=== PATIENT | female | born 1970 | race Caucasian/White ===

== ENCOUNTER 2017-02-20 12:46 | Day surgery (SDC) | payer OTHER ==
[~2017-02-20] VITALS: Ht 165.1 cm; Wt 64.4 kg
[~2017-02-20 12:46] MED LIST: MESA500C PO; Sodium Chloride LOK Flush 10 mL Syringe IV PRN; fentaNYL-PF 50 mCg/mL 2 mL Inj IVPUSH PRN
[2017-02-20 13:31] VITALS: BP 112/75; PULSE 79; RESP 16; O2SAT 97
[2017-02-20] MEDS: 0.9% Sodium Chloride 1,000 ML IV PRN ×4 (13:37→16:08)
[2017-02-20 16:15] VITALS: BP 119/74; PULSE 72; RESP 14; O2SAT 98
[2017-02-20 16:25] VITALS: BP 109/69; PULSE 82; RESP 14; O2SAT 98
[2017-02-20 16:35] VITALS: BP 113/69; PULSE 84; RESP 14; O2SAT 99
--- NOTE | 2017-02-20 23:02 | ENDO ---
[address] [address] ENDOSCOPY PROCEDURE PATIENT: ALEX HICKS : 1970 MR#: [id number] ADMIT: 02/20/2017 JOB ID: [id number] DATE OF PROCEDURE: 02/20/2017 PRIMARY PROVIDER: FISH Skinner. PROCEDURE: Colonoscopy with biopsies. INDICATIONS: A 46-year-old female with a history of Crohn's colitis. She reports for updated endoscopic exam. She is currently having a flare. She uses Pentasa daily. EQUIPMENT: [employer]-H190DL. SEDATION: 1. Versed 5 mg. 2. Fentanyl 125 mcg. COMPLICATIONS: None identified. PROCEDURE INFORMATION: After the risks and benefits were explained, written and verbal informed consent was obtained. The patient was brought into the endoscopy suite and placed into the left lateral decubitus position. Sedation was achieved using the above-stated medications with the addition of oxygen via nasal cannula. A digital rectal examination was accomplished. No significant pathology appreciated. The scope was introduced into the rectum and advanced to the cecum as identified by the appendiceal orifice and ileocecal valve. The terminal ileum was briefly accessed. The scope then slowly withdrawn to carefully examine the mucosa for any defects or lesions. Multiple direct views were made through the dentate line for exclusion of pathology. The colon was decompressed. The scope was removed from the patient who tolerated the procedure well. FINDINGS: The patient had mild to moderate proctocolitis from the dentate line to about 32 cm from the anal verge. This was characterized by mucosa friability, loss of typical vascular pattern, diffuse mild erythema, some scattered erosive features and numerous pseudopolyps. Beyond 32 cm there were a few scattered pseudopolyps and then the mucosa was largely normal all the way to cecum. The terminal ileal mucosa appeared visually normal. I took segmental biopsies from the ascending, transverse, descending, sigmoid, and finally the rectum. No mass lesions or high risk areas were apparent. ENDOSCOPIC DIAGNOSIS: Proctocolitis to 32 cm. RECOMMENDATIONS: 1. Continue Pentasa. 2. The patient is encouraged to initiate a course of Rowasa enemas each night. 3. I have additionally recommended she switch over to VSL#3 probiotic formula. 4. Follow up on clinical results in the next 4-6 weeks in my office.
--- NOTE | 2017-02-26 16:36 | PATH ---
SURGICAL PATHOLOGY Attending Physician:Kori Johnson CASE STATUS: Signed Out * Amended * PATIENT NAME: ALEX HICKS PID: [id number] : 1970 DATE COLLECTED:02/20/2017 00:00 SPECIMEN: 1: Colon, Biopsy 2: Colon, Biopsy 3: Colon, Biopsy 4: Colon, Biopsy 5: Rectum, Biopsy CLINICAL HISTORY: 1). ASCENDING COLON BIOPSY 2). TRANSVERSE COLON BIOPSY 3). DESCENDING COLON BIOPSY 4). SIGMOID COLON BIOPSY 5). RECTAL BIOPSY FINAL DIAGNOSIS: 1. Ascending Colon, Biopsy: Focal active colitis. Negative for dysplasia and neoplasia. Melanosis coli present. 2. Transverse Colon, Biopsy: Superficial portion of colorectal mucosa with melanosis coli and otherwise no significant histomorphologic abnormality. Negative for dysplasia and neoplasia. 3. Descending Colon, Biopsy: Superficial portion of colorectal mucosa with melanosis coli and otherwise no significant histomorphologic abnormality. Negative for dysplasia and neoplasia. 4. Sigmoid Colon, Biopsy: Chronic active colitis. Negative for dysplasia and neoplasia. 5. Rectal Biopsy: Chronic active colitis. Negative for dysplasia and neoplasia. ICD10 K52.9 This case was reviewed and interpreted by Dr. Zandra Shea. The final diagnosis is unchanged. This amendment is issued in order for the report to cross the interface and be available in the hospital electronic medical record. NOTE: Part 1: Histologic sections demonstrate superficial portions of colorectal mucosa with a well-preserved crypt architecture and very rare neutrophils present within the lamina propria. There is no evidence of cryptitis, granulomas, regions of dysplasia, or neoplasia. Parts 4 and 5: Histologic sections demonstrate superficial portions of colorectal mucosa with a marked increase in lymphocytes, plasma cells, and neutrophils within the lamina propria. Crypt architectural distortion and crypt abscesses are present. There is no evidence of dysplasia or neoplasia. GROSS DESCRIPTION: The specimen is received in five formalin filled containers labeled with the patient's name. 1). The specimen is sublabeled "ascending colon" and consists of a 0.3 x 0.2 x 0.2 CM portion of tissue which is entirely submitted in cassette 1A. 2). The specimen is sublabeled "transverse colon" and consists of an extremely tiny less than 0.1 CM portion of tissue which is entirely submitted in cassette 2A. 3). The specimen is sublabeled "descending colon" and consists of a 0.1 x 0.1 x 0.1 CM portion of tissue which is entirely submitted in cassette 3A. 4). The specimen is sublabeled "sigmoid colon" and consists of 3 portions of tissue which aggregate to 0.3 x 0.3 x 0.2 CM. The specimen is entirely submitted in cassette 4A. 5). The specimen is sublabeled "rectal" and consists of 2 portions of tissue which aggregate to 0.3 x 0.3 x 0.2 CM. The specimen is entirely submitted in cassette 5A. 02/21/2017 [facility] ICD-9 CODES: CPT CODES: 1: 81807 2: 02972 3: 47733 4: 61156 5: 22061 AMENDMENT(S): Amended: 02/26/2017 by Ava Salvador Reason:Miscellaneous The final diagnosis is unchanged. This amendment is issued in order for the report to cross the interface and be available in the hospital electronic medical record. Previous Signout Date: 02/22/2017 Electronically Signed Out Sayda Sun MD [facility] [address], [place] [address] Technical component performed at [facility], [address] [place] [address] Ave[address], [address]
== END 2017-02-20 23:59 | disposition home or self-care (01) ==
LOC: END 12:46
PROVIDERS: ATTEND Internal Medicine Gastroenterology
DX: K50.10 Crohn's disease of large intestine without complications (principal)